=== PATIENT | male | born 1950 | race Caucasian/White ===

== ENCOUNTER 2023-01-10 12:48 | Emergency (ER) | payer BC | END 2023-01-10 13:06 | disposition left against medical advice (07) | LOC: CSHERS 12:48 | DX: Z53.21 Procedure and treatment not carried out due to patient leaving prior to being seen by health care provider (principal) ==

== ENCOUNTER 2025-02-18 09:28 | Outpatient (CLI) | payer MEDICARE | END 2025-02-18 09:29 | disposition home or self-care (01) | LOC: CSHMAMMO 09:28 | PROVIDERS: ATTEND Internal Medicine | DX: N63.20 Unspecified lump in the left breast, unspecified quadrant (principal); N62 Hypertrophy of breast | CPT/HCPCS: 76642; 77066; G0279 ==